=== PATIENT | male | born 1980 | race Asian ===

== ENCOUNTER 2019-05-12 14:05 | Emergency (ER) | payer OTHER ==
[~2019-05-12] VITALS: Ht 172.7 cm; Wt 68.0 kg
[2019-05-12 14:23] VITALS: BP 147/96
== END 2019-05-12 15:13 | disposition home or self-care (01) ==
LOC: ER 14:07
DX: R05 Cough (principal); Z20.828 Contact with and (suspected) exposure to other viral communicable diseases
CPT/HCPCS: 36415; 71045-TC

== ENCOUNTER → 2020-01-13 | Emergency (ER) | payer OTHER | END | disposition home or self-care (01) | LOC: ER 13:05 → LAB 13:05 | DX: Z20.828 Contact with and (suspected) exposure to other viral communicable diseases (principal) | CPT/HCPCS: 87426; C9803; U0003 ==